=== PATIENT | female | born 1950 | race Caucasian/White ===

== ENCOUNTER 2019-07-09 13:43 | Emergency (ER) | payer OTHER, SELFPAY ==
[2019-07-09 13:47] VITALS: BP 162/83; PULSE 66; RESP 18; TEMP 36.3; O2SAT 100; BMI 24.7
--- NOTE | 2019-07-09 13:52 | DI.RAD.S_ITS ---
PROCEDURE: XR KNEE RT 3V INDICATIONS: stepped wrong last night, felt a pop and now with pain TECHNIQUE: 3 views of the knee were acquired. COMPARISON: None. FINDINGS: Bones: No fractures or dislocations. No suspicious bony lesions. Tricompartmental osteoarthritis. Soft tissues: Large nonspecific joint effusion. No suspicious soft tissue calcifications. IMPRESSION: 1. No fracture. No acute osseous lesion. If symptoms and/or clinical suspicion for pathology persists, further assessment with repeat radiographs (7-10 days) or advanced imaging (e.g. CT, MRI or bone scan) may be helpful. 2. Large nonspecific joint effusion. Dictated by: Yvonne العلي MD, PhD on 07/09/2019 at 14:17 Approved by: Yvonne العلي MD, PhD on 07/09/2019 at 14:23
--- NOTE | 2019-07-09 15:08 | ED_ITS ---
HPI - Extremity Injury (Lower) <GENI Connors - Last Filed: 07/09/19 21:16> General Chief Complaint: Extremity Injury, Lower Stated Complaint: Stepped Wrong and Hurt Right Knee Time Seen by Provider: 07/09/19 14:41 Source: patient and family Mode of arrival: Wheelchair History of Present Illness HPI Narrative: 68yo female presents emergency department complaining of right knee pain after stepping wrong. She states she planted her foot and then twisted and heard a pop last night at 8pm. Patient reported increased swelling and pain to her knee throughout the night, she reported taking an Advil. Patigricel t denies any previous injury or surgery to that right knee. She denies any head trauma, hip pain, ankle pain, trauma to the knee, dizziness, fevers, chills, nausea, vomiting, diarrhea, or other concerns. Related Data Previous Rx's Medication Instructions Recorded hydrocodone-acetaminophen [Gruetli Laager] 1 tab PO Q4-6H PRN #14 tab 07/09/19 ondansetron 4 mg PO Q8H #14 tab 07/09/19 Allergies Allergy/AdvReac Type Severity Reaction Status Date / Time No Known Drug Allergies Allergy Verified 07/09/19 13:56 Review of Systems <GENI Connors - Last Filed: 07/09/19 21:16> Review of Systems Narrative: REVIEW OF SYSTEMS: GENERAL: Denies fever or chills. HENT: No head trauma. EYES: No double vision or vision loss. CARDIOVASCULAR: No chest pain or syncope. RESPIRATORY: No shortness of breath or cough. GASTROINTESTINAL: No nausea, diarrhea, or constipation. MUSCULOSKELETAL: Complains of right knee pain, see HPI. INTEGUMENTARY: No rash, lesions, or pruritus. NEURO: No numbness, tingling. PSYCH: No behavior or mood changes. Patient History <GENI Connors - Last Filed: 07/09/19 21:16> Medical History No significant medical problems (Acute) Social History Smoking Status: Current every day smoker Smoking Status: Current every day smoker tobacco type: cigarettes Substance Use Type: does not use Exam <GENI Connors - Last Filed: 07/09/19 21:16> Initial Vital Signs Initial Vital Signs: Vital Signs Temperature 97.3 F L 07/09/19 13:47 Pulse Rate 66 07/09/19 13:47 Respiratory Rate 18 07/09/19 13:47 Blood Pressure 162/83 H 07/09/19 13:47 Pulse Oximetry 100 07/09/19 13:47 PHYSICAL EXAMINATION: GENERAL: Well groomed, alert, and cooperative. Answers questions promptly and appropriately. Vital signs noted. HENT: Normocephalic, atraumatic. EYES: Symmetrical, sclera white, no periorbital swelling. CARDIOVASCULAR: S1 and S2 sounds normal. Regular rate and rhythm, no murmurs, clicks, or bruits. No pedal edema. RESPIRATORY: Normal respiratory rate, trachea midline, airway patent. No stridor, nasal flaring or accessory muscle use. Lungs are clear in all davis. MUSCULOSKELETAL: Right lateral joint line tenderness to knee, positive Francisca sign, negative drawer sign, moderate effusion without erythema or increased temp noted. Decreased extension and slightly decreased flexion. EXTREMITIES: CMS intact. Posterior tibialis pulses 2+ and intact bilaterally. SKIN: Warm, dry, soft, appropriate color for ethnicity. No lesions, rashes, or wounds. NEURO: Alert and Oriented X 3. No sensory deficits. PSYCH: Appropriate affect and mood. <Je Nagel DO - Last Filed: 07/10/19 12:57> Initial Vital Signs Initial Vital Signs: Vital Signs Temperature 97.3 F L 07/09/19 13:47 Pulse Rate 66 07/09/19 13:47 Respiratory Rate 18 07/09/19 13:47 Blood Pressure 162/83 H 07/09/19 13:47 Pulse Oximetry 100 07/09/19 13:47 Course <NurysGENI Olea - Last Filed: 07/09/19 21:16> Course Course Narrative: Patient was offered a straight leg brace in the emergency department but declined. Orders Ordered: ED Orders 07/09/19 13:52 XR knee RT 3V Stat Vital Signs Vital signs: Vital Signs - 8 hr 07/09/19 13:47 07/09/19 15:18 Temperature 97.3 F L Pulse Rate 66 62 Respiratory Rate 18 18 Blood Pressure 162/83 H 158/70 H Pulse Oximetry 100 100 <Je Nagel DO - Last Filed: 07/10/19 12:57> Orders Ordered: ED Orders 07/09/19 13:52 XR knee RT 3V Stat Vital Signs Vital signs: Vital Signs - 8 hr 07/09/19 13:47 07/09/19 15:18 Temperature 97.3 F L Pulse Rate 66 62 Respiratory Rate 18 18 Blood Pressure 162/83 H 158/70 H Pulse Oximetry 100 100 [facility] - Extremity Injury (Lower) <Nurys GENI Lawton - Last Filed: 07/09/19 21:16> Medical Records Attestation: I reviewed the patient's medical records. Lab Data Attestation: I reviewed the patient's lab results. Imaging Data Extremity x-ray #1: Radiologist's Impression: [address] [address] XRay Report Signed Patient: Kyle Miranda LMR#: [id number] : [id number]:[id number] Age/Sex: 68 / FDate of Service: 07/09/19 Loc: ED Accession Number: [id number] Procedure: XR knee RT 3V Ordering Provider: Je Nagel D.O. PROCEDURE: XR KNEE RT 3V INDICATIONS: stepped wrong last night, felt a pop and now with pain TECHNIQUE: 3 views of the knee were acquired. COMPARISON: None. FINDINGS: Bones: No fractures or dislocations. No suspicious bony lesions. Tricompartmental osteoarthritis. Soft tissues: Large nonspecific joint effusion. No suspicious soft tissue calcifications. IMPRESSION: 1. No fracture. No acute osseous lesion. If symptoms and/or clinical suspicion for pathology persists, further assessment with repeat radiographs (7-10 days) or advanced imaging (e.g. CT, MRI or bone scan) may be helpful. 2. Large nonspecific joint effusion. Dictated by: Yvonne العلي MD, PhD on 07/09/2019 at 14:17 Approved by: Yvonne العلي MD, PhD on 07/09/2019 at 14:23 [facility] Narrative Medical decision making narrative: 68-year-old female presenting for right-sided knee swelling. Less likely fracture due to negative x-ray. Differential includes meniscus injury (high suspicion due to mechanism of injury, swelling, and lateral joint line tenderness), ligament injury, and strain. Patient was encouraged to use a hinged knee brace and follow up with the referred orthopedic. She was encouraged to use ibuprofen as well as pain medication to help with swelling. Patient agrees with plan of care verbalized understanding. Discharge Plan Departure Patient Disposition: Home Clinical Impression: Internal derangement of right knee Discharge Date/Time: 07/09/19 15:18 Instructions: DI for Meniscal Tear Activity Restrictions/Additional Instructions: Thank you for entrusting me with your care today. As discussed, your x-rays negative for any fractures. However, due to ear exam in the history of your injury and concern for meniscus tear. We have given you a straight leg brace, however, I suggest purchasing a hinged knee brace which will allow you to better position your knee in a position of comfort annual have less muscle atrophy. I referred you to an orthopedic, please give them a call today or tomorrow to schedule an appointment for further evaluation. I have also prescribed you pain and nausea medication. You have been prescribed a narcotic medication, this medication can make you drowsy. Do not drive while using this medication or perform activities that require mental alertness. These medications can also make you constipated, please use [id number] docusate sodium as needed for constipation. Return emergency department for new or worsening symptoms such as severe pain, uncontrollable vomiting, headaches, chest pain, shortness of breath, or etc. Prescriptions: New ondansetron 4 mg tablet,disintegrating 4 mg PO Q8H Qty: 14 RF: 0 hydrocodone-acetaminophen [Gruetli Laager] 5-325 mg tablet 1 tab PO Q4-6H PRN (Reason: pain) Qty: 14 RF: 0 Referrals: Olena Person [Primary Care Provider] - Ginger Watson MD [Physician] - (Concern for meniscus tear) Stand Alone Forms: Work Release Note <Je Nagel, DO - Last Filed: 07/10/19 12:57> Sign Out Provider Sign Out Attestation: Dr Nagel Co-Sign Statement: I was available for consultation during this patient's emergency department visit. This chart is signed by myself for administrative purposes only. I did not have direct contact with this patient during this visit. They were seen independently by the APC.
[2019-07-09 15:18] VITALS: BP 158/70; PULSE 62; RESP 18; O2SAT 100
== END 2019-07-09 15:18 | disposition home or self-care (01) ==
PROVIDERS: Emergency Provider Nurse Practitioner; PCP Physician Assistant Medical
DX: M23.91 Unspecified internal derangement of right knee (principal)
CPT/HCPCS: 73562; 99281; 99283

== ENCOUNTER → 2021-03-17 12:30 | Outpatient (CLI) | payer OTHER, SELFPAY ==
[2021-03-17 13:07] LABS: Add Manual Diff / Slide Review NO; Basophils Absolute Auto 100 /uL (0-100); Basophils Percent Auto 0.7 % (0-2); Eosinophils Absolute Auto 400 /uL (0-450); Eosinophils Percent Auto 3.6 % (2-4); Hematocrit 42.9 % (36-46); Hemoglobin 14.1 g/dL (12.0-16.0); Lymphocytes Absolute Auto 2000 /uL (1100-4500); Lymphocytes Percent Auto 19.3 % (25-40); Mean Corpuscular Hemoglobin 29.6 PG (26-34); Mean Corpuscular Volume 89.7 fL (80-100); Monocytes Absolute Auto 600 /uL (0-900); Monocytes Percent Auto 5.4 % (3-14); Neutrophils Absolute Auto 7400 /uL (1500-7000); Platelet Count 502 X10^3/uL (150-400); Red Blood Cell Count 4.78 X10^6/uL (4.0-5.2); White Blood Cell Count 10.4 X10^3/uL (4.5-11.0)
[2021-03-17 13:15] LABS: Hemoglobin A1C% w Est Avg Glu 5.8 % (4.0-6.0)
[2021-03-17 13:24] LABS: BUN Creatinine Ratio 17.6 (6-22); Blood Urea Nitrogen 13 mg/dL (7-17); Calcium 10.2 mg/dL (8.4-10.2); Carbon Dioxide 27 mmol/L (22-32); Chloride 99 mmol/L (98-107); Estimated Glomerular Filt Rate > 60.0 mL/min (>60); Glucose 95 mg/dL (80-110); HEMOLYSIS < 15 (0-50); Potassium 4.2 mmol/L (3.4-5.1); Sodium 136 mmol/L (137-145)
== END ==
PROVIDERS: Referring Provider Orthopaedic Surgery; Visit Provider Orthopaedic Surgery
DX: Z01.812 Encounter for preprocedural laboratory examination (principal); R73.9 Hyperglycemia, unspecified; N39.0 Urinary tract infection, site not specified
CPT/HCPCS: 36415; 80048; 83036; 85025

== ENCOUNTER → 2021-05-05 09:58 | Outpatient (CLI) | payer OTHER, SELFPAY ==
[2021-05-05 12:10] LABS: Appearance Urine UA SL CLOUDY; Bilirubin Urine UA NEGATIVE (NEGATIVE); Color Urine UA YELLOW; Glucose Urine UA NEGATIVE (Negative); Ketones Urine UA NEGATIVE (NEGATIVE); Leukocyte Esterase Urine UA 3+ (NEGATIVE); Nitrite Urine UA POSITIVE (Negative); Occult Blood Urine UA 3+ (Negative); Protein Urine UA NEGATIVE (Negative); Urobilinogen Urine UA 0.2 E.U./dL (0.2)
[2021-05-05 12:20] LABS: Bacteria Urine Many (>30); Culture Indicated Urine Specimen Cultured; RBC Urine 5-10/HPF (0-5/HPF); WBC Urine 5-10/HPF (0-5/HPF)
== END ==
PROVIDERS: Referring Provider Orthopaedic Surgery; Visit Provider Orthopaedic Surgery
DX: Z01.818 Encounter for other preprocedural examination (principal); Z01.812 Encounter for preprocedural laboratory examination; R73.9 Hyperglycemia, unspecified; N39.0 Urinary tract infection, site not specified
CPT/HCPCS: 81001; 87077; 87086; 87186; 93005